=== PATIENT | male | born 1965 | race Caucasian/White ===

== ENCOUNTER → 2023-10-21 13:47 | Outpatient (REF) | payer BC, SELFPAY | LOC: HWRAD 13:47 | PROVIDERS: ATTENDING PHYSICIAN Family Medicine | DX: R31.0 Gross hematuria (principal); R30.0 Dysuria | CPT/HCPCS: 76770 ==

== ENCOUNTER → 2023-10-29 08:33 | Outpatient (REF) | payer BC, SELFPAY | LOC: HWRAD 08:33 | PROVIDERS: ATTENDING PHYSICIAN Family Medicine | DX: N28.9 Disorder of kidney and ureter, unspecified (principal) | CPT/HCPCS: 74170; Q9967 ==